=== PATIENT | female | born 1985 | race Caucasian/White ===

== ENCOUNTER 2020-04-29 22:31 | Emergency (ER) | payer OTHER ==
[~2020-04-29] VITALS: Ht 167.6 cm; Wt 91.0 kg
[2020-04-29] MEDS ORDERED: IBUP-1022 PO (22:49)
[2020-04-29] MEDS ORDERED: MULTCAP PO (22:49)
[2020-04-29] MEDS ORDERED: RA S25CA PO (22:49)
[2020-04-29] MEDS ORDERED: KETOROLAC 30 MG/ML 1ML VIAL IV ONE (23:30)
[2020-04-29] MEDS ORDERED: ONDANSETRON 4MG/2ML VIAL IV ONE (23:30)
[2020-04-29 23:31] LABS: BASO # 0.1 10^3/uL (0.0-0.2); BASO % 0.4 % (0.0-1.0); EOS # 0.1 10^3/uL (0.0-0.5); EOS % 0.8 % (0.0-3.0); HEMATOCRIT 38.2 % (36.0-47.0); HEMOGLOBIN 12.6 g/dl (12.0-15.5); LYMPH # 1.3 10^3/uL (1.5-5.0); LYMPH % 9.2 % (24.0-44.0); MEAN CORPUSCULAR HEMOGLOBIN 29.1 pg (27.0-33.0); MEAN CORPUSCULAR VOLUME 88.2 fl (80.0-96.0); MONO # 0.9 10^3/uL (0.0-0.8); MONO % 6.5 % (0.0-5.0); NEUTROPHILS # 11.7 10^3/uL (1.5-8.5); NEUTROPHILS % 82.3 % (36.0-66.0); PLATELET COUNT, AUTOMATED 239 10^3/uL (150-450); RED BLOOD COUNT 4.33 10^6/uL (4.00-5.40); WHITE BLOOD COUNT 14.2 10^3/uL (4.0-10.0)
[2020-04-29 23:54] LABS: ALBUMIN 3.6 GM/DL (3.2-5.2); ALT/SGPT 37 U/L (12-78); BILIRUBIN,DIRECT 0.1 MG/DL (0.0-0.2); BILIRUBIN,TOTAL 0.4 MG/DL (0.2-1.0); BLOOD UREA NITROGEN 14 MG/DL (7-18); CALCIUM LEVEL 8.4 MG/DL (8.5-10.1); CARBON DIOXIDE LEVEL 27 MEQ/L (21-32); CHLORIDE LEVEL 105 MEQ/L (98-107); CREATININE FOR GFR 0.87 MG/DL (0.55-1.30); GLOMERULAR FILTRATION RATE > 60.0 (>60); GLUCOSE, FASTING 95 MG/DL (70-100); LIPASE 97 U/L (73-393); POTASSIUM SERUM 4.1 MEQ/L (3.5-5.1); SODIUM LEVEL 138 MEQ/L (136-145); TOTAL PROTEIN 7.1 GM/DL (6.4-8.2)
--- NOTE | 2020-04-30 01:27 | REPVR ---
PROCEDURE INFORMATION: Exam: US Abdomen, Limited; Right Upper Quadrant Exam date and time: 04/30/20 (12:4am) Age: 35 years old Clinical indication: Acute RUQ pain TECHNIQUE: Imaging protocol: US abdomen. Real time ultrasound with image documentation. Limited examination focused on the right upper quadrant. COMPARISON: No relevant prior studies available FINDINGS: The liver is visually normal in size and texture. The gallbladder has normal wall thickness (2.6 mm), with no stones nor sludge seen. No pericholecystic fluid is appreciated. The CBD is not dilated (5 mm diameter). The pancreas appears unremarkable. The right kidney measures 12.7 cm in length, with no hydronephrosis appreciated. No ascites is seen. IMPRESSION: Unremarkable sonography of the RUQ area. No gallstones are appreciated. No biliary dilatation is evident. No abnormal fluid collections. Electronically signed by: Catherine Cunningham On 04/30/2020 01:27:03 AM
[2020-04-30] MEDS ORDERED: GASTROGRAFIN SOLUTION 30ML (Q9963) As Ordered ONE (01:54)
[2020-04-30] MEDS: GASTROGRAFIN SOLUTION 30ML (Q9963) PO SCH ×3 (02:07→03:31)
[2020-04-30] MEDS ORDERED: ISOVUE-370 76% 100ML VIAL As Ordered ONE (03:03)
--- NOTE | 2020-04-30 03:53 | REPVR ---
PROCEDURE INFORMATION: Exam: CT Abdomen and Pelvis with Contrast Exam date and time: 04/30/20 (3:21am) Age: 35 years old Clinical indication: Right-sided abdominal pain TECHNIQUE: Imaging protocol: Computed tomography of the abdomen and pelvis with intravenous contrast. Radiation optimization: All CT scans at this facility use at least one of these dose optimization techniques: automated exposure control; mA and/or kV adjustment per patient size (includes targeted exams where dose is matched to clinical indication); or iterative reconstruction. Contrast material: Iso Contrast volume: 100 ml Contrast route: IV Other contrast: Oral, ggrafin, 600 COMPARISON: US GALLBLADDER of 04/30/20 FINDINGS: Liver: Normal. No solid mass. Gallbladder and bile ducts: Normal. No calcified stones. No ductal dilatation. Pancreas: Normal. No ductal dilatation. Spleen: Normal. No splenomegaly. Adrenals: Normal. No mass. Kidneys and ureters: Normal. No hydronephrosis. Stomach and bowel: Unremarkable. No bowel obstruction. No mucosal thickening. Appendix: A normal appendix most likely is visualized. No evidence of appendicitis. Intraperitoneal space: Unremarkable. No free air. No significant fluid collection. Vasculature: Unremarkable. No abdominal aortic aneurysm. Lymph nodes: Unremarkable. No enlarged lymph nodes. Bladder: Unremarkable as visualized. Reproductive: Tampon in place. Somewhat enlarged, bulky uterus, probably with a rounded heterogeneous mass (4.3 cm size) in the fundal region of the uterus. Bones/joints: Unremarkable. No acute fracture. Soft tissues: Unremarkable. IMPRESSION: No acute findings. Enlarged, bulky uterus, probably with a large heterogeneous fundal fibroid (4.3 cm size). Comparison with prior imaging studies is suggested, if available. A non-emergent pelvic ultrasound can be obtained for further evaluation, as felt warranted. Electronically signed by: Catherine Cunningham On 04/30/2020 03:53:37 AM
[2020-04-30 05:46] VITALS: BP 116/77
[2020-04-30] MEDS ORDERED: ONDA4TAB6 PO (05:48)
== END 2020-04-30 06:04 | disposition home or self-care (01) ==
LOC: EDBD 22:31 → M ED 22:31
DX: K52.9 Noninfective gastroenteritis and colitis, unspecified (principal); N85.2 Hypertrophy of uterus; Z79.899 Other long term (current) drug therapy
CPT/HCPCS: 74177; 76705; 80048; 80076; 81001; 83690; 84702; 85025; 96374; 96375; 99285; J1885; J2405; Q9967